=== PATIENT | male | born 1975 | race African-American/Black ===

== ENCOUNTER 2016-12-28 00:15 | Emergency (ER) | payer SELFPAY ==
[~2016-12-28] VITALS: Ht 188 cm; Wt 99.8 kg
[2016-12-28 03:56] VITALS: BP 126/85
== END 2016-12-28 04:12 ==
LOC: ER 00:16
DX: S51.012A Laceration without foreign body of left elbow, initial encounter (principal); R51 Headache; S00.93XA Contusion of unspecified part of head, initial encounter; F17.210 Nicotine dependence, cigarettes, uncomplicated; F12.10 Cannabis abuse, uncomplicated; X58.XXXA Exposure to other specified factors, initial encounter; Y93.89 Activity, other specified; Y99.8 Other external cause status; Y92.89 Other specified places as the place of occurrence of the external cause
CPT/HCPCS: 70450; 72125; 73070

== ENCOUNTER 2025-06-16 09:45 | Emergency (ER) | payer MEDICAID, OTHER ==
[~2025-06-16] VITALS: Ht 185.4 cm; Wt 105.0 kg
[2025-06-16 09:45] VITALS: BP 130/64; PULSE 118; RESP 18; TEMP 98.6; O2SAT 96
[2025-06-16 10:42] LABS: Hematocrit 41.5 % (41.0-53.0); Hemoglobin 14.0 g/dL (13.5-17.5); Mean Corpuscular Hemoglobin 30.1 pg (28.0-32.0); Mean Corpuscular Volume 89.1 fL (80.0-100.0); Nucleated Red Blood Cells % 0.1 %
[2025-06-16 10:50] LABS: Chloride 105 mmol/L (98-107); Potassium 3.9 mmol/L (3.5-5.1); Sodium 141 mmol/L (136-145)
[2025-06-16 10:51] LABS: Anion Gap 10 (5-15); Calcium 9.5 mg/dL (8.7-10.4); Carbon Dioxide 26 mmol/L (20-31)
[2025-06-16 10:56] LABS: BUN/Creatinine Ratio 12.3 (10.0-20.0); Blood Urea Nitrogen 14 mg/dL (9-23); Glucose 103 mg/dL (74-106)
[2025-06-16 10:57] LABS: Acetaminophen < 2.0 UG/ML (10.0-20.0); Salicylate < 3.0 mg/dL (-30)
[2025-06-16 11:17] LABS: Urine Protein, UAD 1+ (Negative)
[2025-06-16 11:28] LABS: Amphetamine Screen, Urine Pos (NEGATIVE); Barbiturate Scree,Urine Neg (NEGATIVE); Benzodiazephine Screen, Urine Neg (NEGATIVE); Cannabinoid Screen, Urine Pos (NEGATIVE); Cocaine Screen, Urine Neg (NEGATIVE)
[2025-06-16 11:29] LABS: Opiate Scree,Urine Neg (NEGATIVE); Phencyclidine Screen, Urine Neg (NEGATIVE)
--- NOTE | 2025-06-16 11:32 | ED.PDOC ---
Psychiatric HPI Comments 50 y/o M, with PMHx of polysubstance abuse is BIBA for CC of suicidal ideation. EMS reports, patient is coming from home where he called emergency medical services d/t cutting himself superficially on all fingertips in an attempt to hurt himself. Patient relays, that he cut himself because he was upset that his neighbors pointed a gun at him. Upon arrival to the ED, patient denies suicidal ideation stating "I wanted to hurt myself before anyone else could". Per EMS, patient was seen at [facility] for SS and was removed off of property d/t becoming aggressive with staff. Patient denies ETOH or tobacco usage, admits to using methamphetamines a couple of days ago. No other symptoms or modifying factors are present at this time. Chief Complaint: Suicidal Time Seen by MD: 10:45 Primary Care Provider: NONE Reviewed Notes: Nurses Notes, Passport Support Manager Notes, Medications, Allergies Information Source: Patient, Emergency Med Personnel Mode of Arrival: EMS Severity: Unable to Care for Self Severity of Pain: None Severity of Mental Status: Moderate Severity of Symptoms: Moderate Timing: Hours Duration: Since onset Prehospital treatment: None Presents with: Suicidal Ideation Attempt: Laceration Ingestion: None Circumstance: None Current substance abuse: None Stressors: Relationships History of: None Quality: None Location: Other (fingertips) Location of pain or injury: None Associated signs and symptoms: None Past Medical History PAST MEDICAL HISTORY: Denies Surgical History: Denies all surgeries Family History Family History: Unknown Social History Smoker: Cigarettes, Greater Than 1 Pack/Day Alcohol: Occasionally Drugs: Marijuana, Methamphetamine Lives In: Home Constitutional: denies: chills, diaphoresis, fatigue, fever, malaise, sweats, weakness, others EENTM: denies: blurred vision, double vision, ear bleeding, ear discharge, ear drainage, ear pain, ear ringing, eye pain, eye redness, hearing loss, mouth pain, mouth swelling, nasal discharge, nose bleeding, nose congestion, nose pain, photophobia, tearing, throat pain, throat swelling, voice changes, others Respiratory: denies: cough, hemoptysis, orthopnea, SOB at rest, shortness of breath, SOB with excertion, stridor, wheezing, others Cardiovascular: denies: chest pain, dizzy spells, diaphoresis, Dyspnea on exertion, edema, irregular heart beat, left arm pain, lightheadedness, palpitations, PND, syncope, others Gastrointestinal: denies: abdomen distended, abdominal pain, blood streaked bowels, constipated, diarrhea, dysphagia, difficulty swallowing, hematemesis, melena, nausea, poor appetite, poor fluid intake, rectal bleeding, rectal pain, vomiting, others Genitourinary: denies: burning, dysuria, flank pain, frequency, hematuria, incontinence, penile discharge, penile sore, pain, testicle pain, testicle swelling, urgency, others Neurological: denies: dizziness, fainting, headache, left sided numbness, left sided weakness, numbness, paresthesia, pre-existing deficit, right sided numbness, right sided weakness, seizure, speech problems, tingling, tremors, weakness, others Musculoskeletal: denies: back pain, gout, joint pain, joint swelling, muscle p ain, muscle stiffness, neck pain, others Integumetry: denies: bruises, change in color, change in hair/nails, dryness, laceration, lesions, lumps, rash, wounds, others Allergic/Immunocompromised: denies: Difficulty Healing, Frequent Infections, Hives, Itching, others Hematologic/Lymphatic: denies: anemia, blood clots, easy bleeding, easy bruising, swollen glands, others Endocrine: denies: excessive hunger, excessive sweating, excessive thirst, excessive urination, flushing, intolerance to cold, intolerance to heat, unexplained weight gain, unexplained weight loss, others Psychiatric: denies: anxiety, bipolar disorder, depression, hopeless, panic disorder, schizophrenia, sleepless, suicidal, others All Other Systems: Reviewed and Negative Physical Exam General Appearance: No Apparent Distress, Normal HEENT: Normal ENT Inspection, Pharynx Normal Neck: Full Range of Motion, Non-Tender, Normal, Normal Inspection Respiratory: Chest Non-Tender, Lungs Clear, No Accessory Muscle Use, No Respiratory Distress, Normal Breath Sounds Cardiovascular: No Edema, No Murmur, No Gallop, Normal Peripheral Pulses, Regular Rate/Rhythm Breast Exam: Deferred Gastrointestinal: No Organomegaly, Non Tender, No Pulsatile Mass, Normal Bowel Sounds, Soft Genitalia: Deferred Pelvic: Deferred Rectal: Deferred Extremities: No calf tenderness, Normal capillary refill, Normal inspection, Normal range of motion, Non-tender, No pedal edema Musculoskeletal : Apperance: Normal Neurologic: Alert, therapist physical II-XII nml as Tested, No Motor Deficits, Normal Affect, Normal Mood, No Sensory Deficits Cerebellar Function: Normal Reflexes: Normal Skin: Dry, Normal Color, Warm Lymphatic: No Adenopathy Was a procedure done? Was a procedure done?: No Psych Differential Dx Suicidal Differential Dx: Schizoprenia, Substance Abuse X-Ray, Labs, Meds, VS Vital Signs Date Time Temp Pulse Resp B/P (MAP) Pulse Ox O2 Delivery O2 Flow Rate FiO2 06/16/25 09:45 98.6 118 18 130/64 96 98.6 Lab Test 06/16/25 10:15 06/16/25 10:06 Range/Units White Blood Count 8.0 4.4-10.8 10^3/uL Red Blood Count 4.66 4.5-5.90 10^6/uL Hemoglobin 14.0 13.5-17.5 g/dL Hematocrit 41.5 41.0-53.0 % Mean Corpuscular Volume 89.1 80.0-100.0 fL Mean Corpuscular Hemoglobin 30.1 28.0-32.0 pg Mean Corpuscular Hemoglobin Concent 33.8 32.0-36.0 g/dL Red Cell Distribution Width 14.4 H 11.8-14.3 % Platelet Count 312 140-450 10^3/uL Mean Platelet Volume 7.6 6.9-10.8 fL Neutrophils (%) (Auto) 54.3 37.0-80.0 % Lymphocytes (%) (Auto) 35.0 10.0-50.0 % Monocytes (%) (Auto) 9.1 0.0-12.0 % Eosinophils (%) (Auto) 0.9 0.0-7.0 % Basophils (%) (Auto) 0.7 0.0-2.0 % Neutrophils # (Auto) 4.3 1.6-8.6 10 ^3/uL Lymphocytes # (Auto) 2.8 0.4-5.4 10 ^3/uL Monocytes # (Auto) 0.7 0-1.3 10 ^3/uL Eosinophils # (Auto) 0.1 0-0.8 10 ^3/uL Basophils # (Auto) 0.1 0-0.2 10 ^3/uL Nucleated Red Blood Cells 0.1 % Sodium Level 141 136-145 mmol/L Potassium Level 3.9 3.5-5.1 mmol/L Chloride Level 105 98-107 mmol/L Carbon Dioxide Level 26 20-31 mmol/L Anion Gap 10 5-15 Blood Urea Nitrogen 14 9-23 mg/dL Creatinine 1.14 0.700-1.30 mg/dL Glomerular Filtration Rate Calc 79 >90 mL/min BUN/Creatinine Ratio 12.3 10.0-20.0 Serum Glucose 103 74-106 mg/dL Calcium Level 9.5 8.7-10.4 mg/dL Salicylates Level < 3.0 -30 mg/dL Acetaminophen Level < 2.0 L 10.0-20.0 UG/ML Plasma/Serum Blood Alcohol < 3.0 <10 mg/dL Urine Color Yellow Yellow Urine Clarity Clear Clear Urine pH 5.5 5.0-9.0 Urine Specific [place] 1.035 1.001-1.035 Urine Protein 1+ H Negative Urine Ketones Negative Negative Urine Blood Negative Negative /uL Urine Nitrite Negative Negative Urine Bilirubin Negative Negative Urine Urobilinogen Normal Negative mg/dL Urine Leukocyte Esterase Negative Negative /uL Urine RBC 3 0 - 3 /hpf Urine Microscopic WBC 4 H 0-3 /HPF Urine Squamous Epithelial Cells None seen <5 /hpf Urine Bacteria Few H None Seen /hpf Urine Mucus Few None Seen Urine Sperm Present None Seen /hpf Urine Glucose Normal Normal mg/dL Urine Opiates Screen Neg NEGATIVE Urine Fentanyl Screen Neg NEGATIVE Urine Barbiturates Screen Neg NEGATIVE Urine Phencyclidine Screen Neg NEGATIVE Urine Amphetamines Screen Pos NEGATIVE Urine Benzodiazepines Screen Neg NEGATIVE Urine Cocaine Screen Neg NEGATIVE Urine Cannabinoids Screen Pos NEGATIVE Time of 1ST Reevaluation: 11:15 Reevaluation 1ST: Unchanged Patient Education/Counseling: Diagnosis, Treatment Family Education/Counseling: No Family Present Departure 1 Departure Time of Disposition: 17:50 (Patient is medically cleared and cleared by Juan Daniel abraham. We will discharge patient home with outpatient follow up) Impression: Primary Impression: Polysubstance abuse Disposition: 01 HOME / SELF CARE / HOMELESS Condition: Stable Additional Instructions: Do not use drugs. There are resources to help you quit. You can call: [phone] ([phone]) If your symptoms worsen or you have any other concerns please return to the emergency room. e-Prescriptions No Active Prescriptions or Reported Meds Discharged With: Self Critical Care Note Critical Care Time?: No Stability Stability form required: No Heart Score Heart Score: Heart Score Response (Comments) Value History N/A 0 EKG N/A 0 Age N/A 0 Risk Factors N/A 0 Troponin N/A 0 Total 0 I personally scribed for HANH CALLAHAN MD ([email or web address]) on 06/16/25 at 11:32. Electronically submitted by Winifred Brock ([email or web address]). HANH CALLAHAN MD Jun 16, 2025 11:32
--- NOTE | 2025-06-16 16:40 | DVHINCON2 ---
Date of Service if different f: Jun 16, 2025 Consultation ([place]) Labs Laboratory Tests Test 06/16/25 10:06 06/16/25 10:15 Urine Color Yellow (Yellow) Urine Clarity Clear (Clear) Urine pH 5.5 (5.0-9.0) Urine Specific [place] 1.035 (1.001-1.035) Urine Protein 1+ (Negative) Urine Ketones Negative (Negative) Urine Blood Negative /uL (Negative) Urine Nitrite Negative (Negative) Urine Bilirubin Negative (Negative) Urine Urobilinogen Normal mg/dL (Negative) Urine Leukocyte Esterase Negative /uL (Negative) Urine RBC 3 /hpf (0 - 3) Urine Microscopic WBC 4 /HPF (0-3) Urine Squamous Epithelial Cells None seen /hpf (<5) Urine Bacteria Few /hpf (None Seen) Urine Mucus Few (None Seen) Urine Sperm Present /hpf (None Seen) Urine Glucose Normal mg/dL (Normal) Urine Opiates Screen Neg (NEGATIVE) Urine Fentanyl Screen Neg (NEGATIVE) Urine Barbiturates Screen Neg (NEGATIVE) Urine Phencyclidine Screen Neg (NEGATIVE) Urine Amphetamines Screen Pos (NEGATIVE) Urine Benzodiazepines Screen Neg (NEGATIVE) Urine Cocaine Screen Neg (NEGATIVE) Urine Cannabinoids Screen Pos (NEGATIVE) White Blood Count 8.0 10^3/uL (4.4-10.8) Red Blood Count 4.66 10^6/uL (4.5-5.90) Hemoglobin 14.0 g/dL (13.5-17.5) Hematocrit 41.5 % (41.0-53.0) Mean Corpuscular Volume 89.1 fL (80.0-100.0) Mean Corpuscular Hemoglobin 30.1 pg (28.0-32.0) Mean Corpuscular Hemoglobin Concent 33.8 g/dL (32.0-36.0) Red Cell Distribution Width 14.4 % (11.8-14.3) Platelet Count 312 10^3/uL (140-450) Mean Platelet Volume 7.6 fL (6.9-10.8) Neutrophils (%) (Auto) 54.3 % (37.0-80.0) Lymphocytes (%) (Auto) 35.0 % (10.0-50.0) Monocytes (%) (Auto) 9.1 % (0.0-12.0) Eosinophils (%) (Auto) 0.9 % (0.0-7.0) Basophils (%) (Auto) 0.7 % (0.0-2.0) Neutrophils # (Auto) 4.3 10 ^3/uL (1.6-8.6) Lymphocytes # (Auto) 2.8 10 ^3/uL (0.4-5.4) Monocytes # (Auto) 0.7 10 ^3/uL (0-1.3) Eosinophils # (Auto) 0.1 10 ^3/uL (0-0.8) Basophils # (Auto) 0.1 10 ^3/uL (0-0.2) Nucleated Red Blood Cells 0.1 % Sodium Level 141 mmol/L (136-145) Potassium Level 3.9 mmol/L (3.5-5.1) Chloride Level 105 mmol/L (98-107) Carbon Dioxide Level 26 mmol/L (20-31) Anion Gap 10 (5-15) Blood Urea Nitrogen 14 mg/dL (9-23) Creatinine 1.14 mg/dL (0.700-1.30) Glomerular Filtration Rate Calc 79 mL/min (>90) BUN/Creatinine Ratio 12.3 (10.0-20.0) Serum Glucose 103 mg/dL (74-106) Calcium Level 9.5 mg/dL (8.7-10.4) Salicylates Level < 3.0 mg/dL (-30) Acetaminophen Level < 2.0 UG/ML (10.0-20.0) Plasma/Serum Blood Alcohol < 3.0 mg/dL (<10) Appetite: Good Appearance: Stated age, Clean Psychomotor activity: WNL Behavioral: Cooperative Eye contact: Appropriate Speech: WNL Affect: Appropriate Mood: Neutral Thought content: WNL Suicidal ideations: Absent Homicidal ideations: Absent Orientation: Person, Place, Time, Situation Memory intact: Recent Intellect: Average Abstractability: WNL Concentration: Adequate Judgement: Marginal Insight: Limited Vitals Vital Signs Date Time Temp Pulse Resp B/P (MAP) Pulse Ox O2 Delivery O2 Flow Rate FiO2 06/16/25 09:45 98.6 118 18 130/64 96 98.6 Medication adjusted: No Labs ordered: No Diagnosis: unspecified psychosis r/o substance-induced Methamphetamine dependence Cannabis dependence Plan : Patient presently denies suicidal/homicidal ideation Patient had recent substance intoxication patient may discharge home to follow up with outpatient mental health team. History of Present Illness Reason for Consult : patient presents by ambulance after cutting himself HPI : This is a 50-year-old male with hx of psychosis and polysubstance use presented here after calling 911. Patient is evaluated via telepsychiatry. He reports being upset at neighbors and he went to do "something stupid" and used methamphetamine. He reports that neighbors were pointing a gun him at the time but does not believe this now. He also has some superficial lacerations to finger tips. He says he cut himself but it was stupid. He wanted to harm himself before neighbors could. Now he does not believe they will harm him. This appears to be after he used substances. He denies any suicidal/homicidal ideation. He also denies auditory/visual halluci nations or paranoia now. He would like to go home. He reports cousin on the way to pick him up. He also reports mental health team has set up rehab for him and plans to check in soon. He reports sleep and appetite are intact. He denies feeling depressed. Offered vol inpatient transfer and he declined. Past Psychiatric History : He denies past inpatient psych admissions. he reports going to [facility] emergency room 1 week ago for similar incident. He denies past suicide attempts. He reports connection to [facility], has a therapist and psychiatrist. he is currently prescribed Latuda and Cymbalta, reports compliance. Past Medical History : he denies Social History : He reports has own apartment, lives alone. Unclear if this is government housing as he denies employment. He denies any known family history. He reports use of meth and marijuana for "some time" he denies daily use. He denies other substance or IVD. STEFANY VERMA DNP Jun 16, 2025 16:40
== END 2025-06-16 18:31 | disposition home or self-care (01) ==
LOC: EDBD 09:45 → ER 09:45
DX: S61.219A Laceration without foreign body of unspecified finger without damage to nail, initial encounter (principal); F12.20 Cannabis dependence, uncomplicated; F15.20 Other stimulant dependence, uncomplicated; F29 Unspecified psychosis not due to a substance or known physiological condition; F17.210 Nicotine dependence, cigarettes, uncomplicated; F10.90 Alcohol use, unspecified, uncomplicated; X78.9XXA Intentional self-harm by unspecified sharp object, initial encounter; Y93.89 Activity, other specified; Y92.89 Other specified places as the place of occurrence of the external cause; Y99.8 Other external cause status
CPT/HCPCS: 36415; 80048; 80307; 80320; 80329; 81001; 85025

== ENCOUNTER 2025-06-24 09:53 | Emergency (ER) | payer MEDICAID ==
[~2025-06-24] VITALS: Ht 185.4 cm; Wt 100.0 kg
--- NOTE | 2025-06-24 10:04 | ECG ---
[facility] Test Date: 2025-06-24 Test Time: 09:55:42 Pat Name: JOSE ANTONIO PADILLA Department: [facility] ED Patient ID: [facility]-[id number] Room: Gender: M [employer]am [employer]: BAN : 1975 Requested By: EMERGENCY EMERGENCY Order Number: [id number] Reading MD: Neri Pena Measurements Intervals Helix Rate: 107 P: 51 NJ: 160 QRS: 98 QRSD: 99 T: -22 QT: 340 QTc: 454 Interpretive Statements Sinus tachycardia Borderline right axis deviation Nonspecific T abnormalities, inferior leads Electronically Signed On 06-24-2025 12:19:16 PDT by Neri Pena Please click the below link to view image of tracing.
[2025-06-24 10:05] VITALS: BP 122/83; RESP 18; TEMP 98.1; O2SAT 98
[2025-06-24 10:21] VITALS: PULSE 107
--- NOTE | 2025-06-24 10:21 | ED.PDOC ---
Psychiatric HPI Comments HPI: Ricardo 50 y.o male presents to the ED via EMS for an initial complaint per EMS of SOB but upon presentation, reports suicidal and homicidal ideation. Patient is a poor historian. EMS reports patient asked employees inside a [employer] store to call 911 today. Upon ED arrival, patient is requesting to only speak with physi sophia in a private area and only then will he give a more detailed explanation. Patient does mention HI with plan of "bombing the whole street" in which he was picked up from by EMS. No other information obtained. Patient was seen on 06/16/25 at this ED for SI, was seen by tele psychiatrist who offered to place him on a volunteer inpatient transfer, however declined plan of care. Per psychiatrist consult note, patient has hx of polysubstance use, psychosis and has established care with [facility] where he has a therapist and psychiatrist. he is currently prescribed Latuda and Cymbalta, reports compliance. Initial Vitals BP: 122/83 HR: 107 RR: 18 O2: 98% RA Temp: 98.1 F Past Medical History: Bipolar, depression, and SI. Past Surgical History: Unknown Social History: Denies ETOH, smoking, and drug use. Medications: Latuda and Cymbalta Allergies: Denies padilla: SI/HI bipolar depression HPI: Poor Historian. REVIEW OF SYSTEMS: CONSTITUTIONAL: Denies acute: fever, diaphoresis, chills, generalized weakness. HEAD: Denies acute: headache, photophobia Eyes: Denies acute: Double vision, vision loss, eye pain, eye discharge. EARS: Denies acute: tinnitus, hearing loss, ear discharge, ear pain, THROAT: Denies acute: sore throat, swelling, difficulty swallowing , pain with swallowing, change in voice. NECK: Denies acute: neck pain, neck swelling, stiff neck. HEART: Denies acute : chest pain, palpitations, LUNGS: Denies acute: wheezing, cough, hemoptysis ABDOMEN: Denies acute: abdominal pain, Nausea, Vomiting, diarrhea, melena , hematemesis, hematochezia SKIN: Denies acute: rash, redness, lesions, itchiness. EXTREMITIES: Denies acute: calf pain, numbness, tingling, weakness, denies pain in extremity. Denies acute: Low back pain. Neuro: Denies acute: focal neurological deficit, motor or sensory focal neurological deficit, tremors, seizure like activity, confusion, dizziness, change in mental status, loss of bowel or bladder function, cauda equina like symptoms. : Denies acute: dysuria, hematuria, flank pain, increase in urinary frequency. PSYCH: Denies acute: hallucination, PHYSICAL EXAM: General: -----no---acute distress, awake and alert. Head: normocephalic, atraumatic. Neck: supple, trachea is midline, no swelling. Throat: Normal phonation. Eyes:, no erythema, no purulent discharge, no proptosis, no icterus. Heart: regular rate, regular rhythm, no significant murmur appreciated. Lungs: no apparent respiratory distress, Able to speak in full sentences. No wheezing, no rhonchi, no crackles. No stridors Clear to auscultation bilaterally. Abdomen: non tender to palpation, non distended, soft, no guarding, no rebound, + bowel sounds. Neuro: Awake, Alert, oriented to name, self, situation, follows commands GCS=15. Speech is normal. Skin: no petechia, no purpura, no cyanosis, non-pale, not jaundice. Lower extremities: --1/4 b/l - Pitting edema no deformity, no focal swelling, no calf TTP. moves all four extremities. Face: no apparent facial droop. Ambulating in the ED independently. ED COURSE: DISCLAIMER: This medical document was created using an electronic medical record system with voice recognition software and computerized dictation system. Although this document has been carefully reviewed, there might still be some phonetic and typographical errors. Occasional wrong-word or "sound-alike" substitutions may have occurred due to the inherent limitations of voice recognition software. These areas are purely typographical due to imperfections of the software programs and do not reflect any compromise in the patient's medical care. Please read the chart carefully and recognize, using context, where these substitutions have occurred. Chief Complaint: Shortness of Breath Time Seen by MD: 10:01 Primary Care Provider: NONE Reviewed Notes: Stress Analyst Notes Information Source: Patient, Emergency Med Personnel Mode of Arrival: EMS EKG EKG : Pulse Rate (adult): 107 Cardiac Rhythm: ST Comments T wave inversion in lead 3 Was a procedure done? Was a procedure done?: No Psych Differential Dx Psych. Differential Dx: Suicidal Suicidal Differential Dx: Alcohol Abuse, Anxiety, Bipolar Disorder, Conversion Disorder, Depression, Homicidal, Laceration, Panic Disorder, Personality Disorder, Schizoprenia, Substance Abuse Other Differentail Dx As far as possible dyspnea. DDx include ACS, unstable angina, anxiety, PE, p neumothroax, neoplasm, cardiac ischemia, COPD, asthma, CHF, pleural effusion, tobacco abuse, pneumonia, hypoxia, hypercapnia, anemia., infection/sepsis., pulmonary edema. Asthma, Cardiac tamponade, infection. X-Ray, Labs, Meds, VS Vital Signs Date Time Temp Pulse Resp B/P (MAP) Pulse Ox O2 Delivery O2 Flow Rate FiO2 06/24/25 10:21 107 06/24/25 10:05 98.1 10 18 122/83 98 98.1 06/24/25 09:55 107 Lab Test 06/24/25 10:30 Range/Units White Blood Count 6.9 4.4-10.8 10^3/uL Red Blood Count 4.60 4.5-5.90 10^6/uL Hemoglobin 13.9 13.5-17.5 g/dL Hematocrit 41.5 41.0-53.0 % Mean Corpuscular Volume 90.3 80.0-100.0 fL Mean Corpuscular Hemoglobin 30.3 28.0-32.0 pg Mean Corpuscular Hemoglobin Concent 33.6 32.0-36.0 g/dL Red Cell Distribution Width 14.4 H 11.8-14.3 % Platelet Count 314 140-450 10^3/uL Mean Platelet Volume 7.4 6.9-10.8 fL Neutrophils (%) (Auto) 64.1 37.0-80.0 % Lymphocytes (%) (Auto) 27.7 10.0-50.0 % Monocytes (%) (Auto) 5.9 0.0-12.0 % Eosinophils (%) (Auto) 1.5 0.0-7.0 % Basophils (%) (Auto) 0.8 0.0-2.0 % Neutrophils # (Auto) 4.4 1.6-8.6 10 ^3/uL Lymphocytes # (Auto) 1.9 0.4-5.4 10 ^3/uL Monocytes # (Auto) 0.4 0-1.3 10 ^3/uL Eosinophils # (Auto) 0.1 0-0.8 10 ^3/uL Basophils # (Auto) 0.1 0-0.2 10 ^3/uL Nucleated Red Blood Cells 0.1 % Sodium Level 144 136-145 mmol/L Potassium Level 3.8 3.5-5.1 mmol/L Chloride Level 107 98-107 mmol/L Carbon Dioxide Level 27 20-31 mmol/L Anion Gap 10 5-15 Blood Urea Nitrogen 7 L 9-23 mg/dL Creatinine 1.13 0.700-1.30 mg/dL Glomerular Filtration Rate Calc 80 >90 mL/min BUN/Creatinine Ratio 6.2 L 10.0-20.0 Serum Glucose 100 74-106 mg/dL Lactic Acid Level 1.9 0.4-2.0 mmol/L Calcium Level 9.4 8.7-10.4 mg/dL Total Bilirubin 0.4 0.2-1.0 mg/dL Aspartate Amino Transferase (AST) 28 13-40 U/L Alanine Aminotransferase (ALT) 33 7-40 U/L Alkaline Phosphatase 74 46-116 U/L Troponin I High Sensitivity 6 </=54 ng/L B-Type Natriuretic Peptide 2.68 0-100 pg/mL Total Protein 7.5 5.7-8.2 g/dL Albumin 4.5 3.2-4.8 g/dL [place] [id number] Ph: [phone] DIAGNOSTIC IMAGING Diagnostic Imaging Report : [id number] Signed PATIENT: JOSE ANTONIO PADILLA ACCT: [id number] UNIT: [id number] : 1975 LOC: ER ROOM / BED: / AGE / SEX: 50 / M ADM STATUS: REG ER SERVICE 1010 ORDERING PHYSICIAN: HEIDE MA DO PROCEDURE(s): CXRP - CHEST PORTABLE REASON: SI/HI ORDER NUMBER(s): [id number], ACCESSION NUMBER(s): [id number] CHEST RADIOGRAPH Indication: SI/HI Technique: Single frontal view of the chest was obtained Comparison: None FINDINGS: Lines and Tubes: None Lungs: No focal consolidation. Pleura: No effusion. No pneumothorax. Cardiomediastinal contours: Unremarkable Bones: No acute osseous abnormality. IMPRESSION: 1. No acute cardiopulmonary disease. HS:Y ATED BY: PATRICIA BURNS Jr., DO DICTATED DATE/TIME: 06/24/25 105 SIGNED BY: PATRICIA BURNS Jr., SIGNED DATE/TIME: 06/24/25 105 CC: Time of 1ST Reevaluation: 11:00 Reevaluation 1ST: Unchanged Patient Education/Counseling: Diagnosis, Treatment Family Education/Counseling: No Family Present Comments Labs were ordered along with social service and tele psych consultation. Jacquelyn ent eloped I was not to be found in the ED. Departure 1 Departure Time of Disposition: 00:00 Impression: Primary Impression: Suicidal ideation Additional Impressions: Homicidal ideation Encounter for psychiatric assessment Tachycardia Eloped from emergency department Homelessness Disposition: LEFT AWOL/ELOPED Condition: Other Additional Instructions: Patient eloped e-Prescriptions No Active Prescriptions or Reported Meds Critical Care Note Critical Care Time?: No I personally scribed for HEIDE MA DO ([email or web address]) on 06/24/25 at 10:21. Electronically submitted by Alyssa Nguyen ([facility]). I personally scribed for HEIDE MA DO ([email or web address]) on 06/24/25 at 13:37. Electronically submitted by Alyssa Nguyen ([facility]). HEIDE MA DO Jun 24, 2025 10:21
[2025-06-24 10:46] LABS: Hematocrit 41.5 % (41.0-53.0); Hemoglobin 13.9 g/dL (13.5-17.5); Mean Corpuscular Hemoglobin 30.3 pg (28.0-32.0); Mean Corpuscular Volume 90.3 fL (80.0-100.0); Nucleated Red Blood Cells % 0.1 %
--- NOTE | 2025-06-24 10:57 | DVH ---
CHEST RADIOGRAPH Indication: SI/HI Technique: Single frontal view of the chest was obtained Comparison: None FINDINGS: Lines and Tubes: None Lungs: No focal consolidation. Pleura: No effusion. No pneumothorax. Cardiomediastinal contours: Unremarkable Bones: No acute osseous abnormality. IMPRESSION: 1. No acute cardiopulmonary disease. HS:Y
[2025-06-24 10:59] LABS: Alanine Aminotransferase 33 U/L (7-40); Alkaline Phosphatase 74 U/L (46-116); Anion Gap 10 (5-15); BUN/Creatinine Ratio 6.2 (10.0-20.0); Calcium 9.4 mg/dL (8.7-10.4); Carbon Dioxide 27 mmol/L (20-31); Chloride 107 mmol/L (98-107); Glucose 100 mg/dL (74-106); Potassium 3.8 mmol/L (3.5-5.1); Sodium 144 mmol/L (136-145); Total Protein 7.5 g/dL (5.7-8.2)
[2025-06-24 11:00] LABS: Albumin 4.5 g/dL (3.2-4.8); Bilirubin, Total 0.4 mg/dL (0.2-1.0)
[2025-06-24 11:01] LABS: Blood Urea Nitrogen 7 mg/dL (9-23)
== END 2025-06-24 13:43 | disposition left against medical advice (07) ==
LOC: EDBD 09:53 → ER 09:53
DX: R45.851 Suicidal ideations (principal); R45.850 Homicidal ideations; R00.0 Tachycardia, unspecified; F31.9 Bipolar disorder, unspecified; J45.909 Unspecified asthma, uncomplicated; Z59.00 Homelessness unspecified
CPT/HCPCS: 36415; 71045; 80053; 83605; 83880; 84484; 85025; 93005

== ENCOUNTER 2025-07-02 01:54 | Inpatient (IN) | payer MEDICAID ==
[~2025-07-02] VITALS: Ht 188 cm; Wt 113.2 kg
[2025-07-02 01:57] VITALS: BP 132/76; RESP 20; TEMP 97.4; O2SAT 97
[2025-07-02 02:08] VITALS: PULSE 85
--- NOTE | 2025-07-02 02:14 | ECG ---
[facility] Test Date: 2025-07-02 Test Time: 02:08:37 Pat Name: JOSE ANTONIO PADILLA Department: ED Room: [address] [place] [address] Gender: M [employer] R Tech: AM : 1975 Requested By: HANH CALLAHAN Order Number: [id number] Reading MD: Neri Pena Measurements Intervals [place] Rate: 85 P: 48 PA: 153 QRS: 53 QRSD: 102 T: -30 QT: 367 QTc: 437 Interpretive Statements Sinus rhythm Inferior infarct, old Baseline wander in lead(s) I Electronically Signed On 07-02-2025 20:40:54 PDT by Neri Pena Please click the below link to view image of tracing.
--- NOTE | 2025-07-02 02:25 | ED.PDOC ---
History of Present Illness HPI Comments 50-year-old male who came to ER for shortness a breath. Patient is homeless and has history of polysubstance abuse. Has been complaining of left lateral chest wall pain and shortness a breath for the past few hours. Saturating 97% on room air. Chief Complaint: Shortness of Breath Time Seen by MD: 02:24 Primary Care Provider: NONE Reviewed Notes: Nurses Notes Allergies: Coded Allergies: NO KNOWN ALLERGIES (Unverified , 01/07/11) Home Meds No Active Prescriptions or Reported Meds Information Source: Patient Mode of Arrival: Ambulatory Severity: Moderate Timing: Hours Duration: Intermittent Past Medical History PAST MEDICAL HISTORY: Denies Surgical History: Denies all surgeries Family History Family History: Reviewed,noncontributory to illness Social History Smoker: Cigarettes, Greater Than 1 Pack/Day Alcohol: Occasionally Drugs: Marijuana, Methamphetamine Lives In: Homeless Constitutional: denies: chills, diaphoresis, fatigue, fever, malaise, sweats, weakness, others EENTM: denies: blurred vision, double vision, ear bleeding, ear discharge, ear drainage, ear pain, ear ringing, eye pain, eye redness, hearing loss, mouth pain, mouth swelling, nasal discharge, nose bleeding, nose congestion, nose pain, photophobia, tearing, throat pain, throat swelling, voice changes, others Respiratory: reports: shortness of breath; denies: cough, hemoptysis, orthopnea, SOB at rest, SOB with excertion, stridor, wheezing, others Cardiovascular: reports: chest pain; denies: dizzy spells, diaphoresis, Dyspnea on exertion, edema, irregular heart beat, left arm pain, lightheadedness, palpitations, PND, syncope, others Gastrointestinal: denies: abdomen distended, abdominal pain, blood streaked bowels, constipated, diarrhea, dysphagia, difficulty swallowing, hematemesis, melena, nausea, poor appetite, poor fluid intake, rectal bleeding, rectal pain, vomiting, others Genitourinary: denies: burning, dysuria, flank pain, frequency, hematuria, incontinence, penile discharge, penile sore, pain, testicle pain, testicle swelling, urgency, others Neurological: denies: dizziness, fainting, headache, left sided numbness, left sided weakness, numbness, paresthesia, pre-existing deficit, right sided numbness, right sided weakness, seizure, speech problems, tingling, tremors, weakness, others Musculoskeletal: denies: back pain, gout, joint pain, joint swelling, muscle pain, muscle stiffness, neck pain, others Integumetry: denies: bruises, change in color, change in hair/nails, dryness, laceration, lesions, lumps, rash, wounds, others Allergic/Immunocompromised: denies: Difficulty Healing, Frequent Infections, Hives, Itching, others Hematologic/Lymphatic: denies: anemia, blood clots, easy bleeding, easy bruising, swollen glands, others Endocrine: denies: excessive hunger, excessive sweating, excessive thirst, excessive urination, flushing, intolerance to cold, intolerance to heat, unexplained weight gain, unexplained weight loss, others Psychiatric: denies: anxiety, bipolar disorder, depression, hopeless, panic disorder, schizophrenia, sleepless, suicidal, others Physical Exam General Appearance: No Apparent Distress, Normal HEENT: Normal ENT Inspection, Pharynx Normal, TMs Normal Neck: Full Range of Motion, Non-Tender, Normal, Normal Inspection Respiratory: Chest Non-Tender, Lungs Clear, No Accessory Muscle Use, No Respiratory Distress, Normal Breath Sounds Cardiovascular: No Edema, No JVD, No Murmur, No Gallop, Normal Peripheral Pulses, Regular Rate/Rhythm Breast Exam: Deferred Gastrointestinal: No Organomegaly, Non Tender, No Pulsatile Mass, Normal Bowel Sounds, Soft Genitalia: Deferred Pelvic: Deferred Rectal: Deferred Extremities: No calf tenderness, Normal capillary refill, Normal inspection, Normal range of motion, Non-tender, No pedal edema Musculoskeletal : Apperance: Normal Neurologic: Alert, waxer tender II-XII nml as Tested, No Motor Deficits, Normal Affect, Normal Mood, No Sensory Deficits Cerebellar Function: Normal Reflexes: Normal Skin: Dry, Normal Color, Warm Lymphatic: No Adenopathy Was a procedure done? Was a procedure done?: No Differential Dx Considerations may include: Anemia, electrolyte imbalance, coronary artery disease, upper respiratory infection, polysubstance abuse, X-Ray, Labs, Meds, VS Vital Signs Date Time Temp Pulse Resp B/P (MAP) Pulse Ox O2 Delivery O2 Flow Rate FiO2 07/02/25 02:08 85 07/02/25 01:57 97.4 87 20 132/76 97 97.4 Lab Test 07/02/25 03:17 07/02/25 02:21 Range/Units Troponin I High Sensitivity < 3 L 3 L </=54 ng/L White Blood Count 7.2 4.4-10.8 10^3/uL Red Blood Count 4.60 4.5-5.90 10^6/uL Hemoglobin 14.2 13.5-17.5 g/dL Hematocrit 41.6 41.0-53.0 % Mean Corpuscular Volume 90.5 80.0-100.0 fL Mean Corpuscular Hemoglobin 30.8 28.0-32.0 pg Mean Corpuscular Hemoglobin Concent 34.1 32.0-36.0 g/dL Red Cell Distribution Width 14.2 11.8-14.3 % Platelet Count 321 140-450 10^3/uL Mean Platelet Volume 7.4 6.9-10.8 fL Neutrophils (%) (Auto) 45.1 37.0-80.0 % Lymphocytes (%) (Auto) 44.6 10.0-50.0 % Monocytes (%) (Auto) 8.6 0.0-12.0 % Eosinophils (%) (Auto) 1.1 0.0-7.0 % Basophils (%) (Auto) 0.6 0.0-2.0 % Neutrophils # (Auto) 3.2 1.6-8.6 10 ^3/uL Lymphocytes # (Auto) 3.2 0.4-5.4 10 ^3/uL Monocytes # (Auto) 0.6 0-1.3 10 ^3/uL Eosinophils # (Auto) 0.1 0-0.8 10 ^3/uL Basophils # (Auto) 0 0-0.2 10 ^3/uL Nucleated Red Blood Cells 0.0 % Sodium Level 140 136-145 mmol/L Potassium Level 4.0 3.5-5.1 mmol/L Chloride Level 104 98-107 mmol/L Carbon Dioxide Level 28 20-31 mmol/L Anion Gap 8 5-15 Blood Urea Nitrogen 10 9-23 mg/dL Creatinine 1.17 0.700-1.30 mg/dL Glomerular Filtration Rate Calc 76 >90 mL/min BUN/Creatinine Ratio 8.5 L 10.0-20.0 Serum Glucose 98 74-106 mg/dL Calcium Level 9.5 8.7-10.4 mg/dL CHEST RADIOGRAPH Indication: cp Technique: Single frontal view of the chest was obtained COMPARISON: XY CHEST PORTABLE on DOS: 06/24/25 FINDINGS: Lines and Tubes: None Lungs: Clear Pleura: No effusion. No pneumothorax. Cardiomediastinal contours: Unremarkable Bones: Unremarkable IMPRESSION: 1. No acute disease. Time of 1ST Reevaluation: 02:20 Reevaluation 1ST: Unchanged Patient Education/Counseling: Diagnosis, Treatment Family Education/Counseling: No Family Present SEPSIS Sepsis Screen Date sepsis recognized/suspect: Jul 02, 2025 Time Sepsis recognized/suspect: 200 Recent Procedure: No On Antibiotic Therapy: Yes (DOXYCYCLINE ) Respiratory Rate >20: No Heart Rate >90: No Temp<36 C (96.8 F) or >38.3 C: No SBP <90 or MAP <65 mmHG: No New Acute Mental Status Change: No Is the patient on CPAP, BIPAP,: No Physician Orders Chest Portable (07/02/25 02:18) Troponin-I Hs (07/02/25 05:18) Vital Signs Date Time Temp Pulse Resp B/P (MAP) Pulse Ox O2 Delivery O2 Flow Rate FiO2 07/02/25 02:08 85 07/02/25 01:57 97.4 87 20 132/76 97 97.4 Laboratory Tests Test 07/02/25 02:21 White Blood Count 7.2 10^3/uL (4.4-10.8) Departure 1 Departure Time of Disposition: 05:03 (Patient presented with chest pain that was concerning for possible STEMI, ACS, PE, Pneumonia, Muscle Strain, COPD, Dissection. Data: 1. I ordered and reviewed the result of at least 3 labs including a CBC, BMP, and Troponin. 2. I independently interpreted the following tests: EKG which shows sinus arrhythmia and Chest X-ray which shows benign chest.Risk:This patient has a high risk of morbidity due to further diagnostic testing or treatment and may suffer from an acute cardiac or respiratory disorder. Workup reveals concern for ACS and patient should be admitted for further workup and possible expert consultation. ) Impression: Primary Impression: Acute chest pain Disposition: ADMITTED INPATIENT Admit to: Med Surg Condition: Guarded e-Prescriptions No Active Prescriptions or Reported Meds Critical Care Note Critical Care Time?: Yes Critical care comment: Acute chest pain Authorized and Performed by: Hanh Parekh MD Total critical care time: Approximately 38 minutes Due to a high probability of clinically significant, life threatening deterioration, the patient required my highest level of preparedness to intervene emergently and I personally spent this critical care time directly and personally managing the patient. This critical care time included obtaining a history; examining the patient; pulse oximetry; ordering and review of studies; arranging urgent treatment with development of a management plan; evaluation of patient's response to treatment; frequent reassessment; and, discussions with other providers. This critical care time was performed to assess and manage the high probability of imminent, life-threatening deterioration that could result in multi-organ failure. It was exclusive of separately billable procedures and treating other patients and teaching time. Please see my other sections and the rest of the note for further information on patient assessment and treatment. Stability Stability form required: No Heart Score Heart Score: Heart Score Response (Comments) Value History N/A 0 EKG N/A 0 Age N/A 0 Risk Factors N/A 0 Troponin N/A 0 Total 0 I personally scribed for HANH PAREKH MD ([facility]) on 07/02/25 at 02:25. Electronically submitted by Noe Rhoades ([facility] I personally scribed for HANH PAREKH MD ([facility]) on 07/02/25 at 03:29. Electronically submitted by Noe Rhoades ([facility] I personally scribed for HANH PAREKH MD ([facility]) on 07/02/25 at 04:21. Electronically submitted by Noe Rhoades ([facility] HANH PAREKH MD Jul 02, 2025 02:25
[2025-07-02 02:41] LABS: Hematocrit 41.6 % (41.0-53.0); Hemoglobin 14.2 g/dL (13.5-17.5); Mean Corpuscular Hemoglobin 30.8 pg (28.0-32.0); Mean Corpuscular Volume 90.5 fL (80.0-100.0); Nucleated Red Blood Cells % 0.0 %
[2025-07-02 02:55] LABS: Chloride 104 mmol/L (98-107); Potassium 4.0 mmol/L (3.5-5.1); Sodium 140 mmol/L (136-145)
[2025-07-02 02:56] LABS: Anion Gap 8 (5-15); Carbon Dioxide 28 mmol/L (20-31)
[2025-07-02 02:57] LABS: Calcium 9.5 mg/dL (8.7-10.4)
[2025-07-02 03:02] LABS: BUN/Creatinine Ratio 8.5 (10.0-20.0); Blood Urea Nitrogen 10 mg/dL (9-23); Glucose 98 mg/dL (74-106)
--- NOTE | 2025-07-02 03:24 | DVH ---
CHEST RADIOGRAPH Indication: cp Technique: Single frontal view of the chest was obtained COMPARISON: XY CHEST PORTABLE on DOS: 06/24/25 FINDINGS: Lines and Tubes: None Lungs: Clear Pleura: No effusion. No pneumothorax. Cardiomediastinal contours: Unremarkable Bones: Unremarkable IMPRESSION: 1. No acute disease.
[2025-07-02] MEDS ORDERED: MORPHINE SULFATE INJ 2 MG/ml SYRG IV PRN (09:15)
[2025-07-02] MEDS ORDERED: ACETAMINOPHEN 325 MG TAB PO PRN (09:15)
[2025-07-02] MEDS ORDERED: MORPHINE SULFATE 4 MG/ML SYR/VIAL IV PRN (09:15)
[2025-07-02] MEDS ORDERED: ONDANSETRON HCL 4 MG/2 ML VIAL IV PRN (09:15)
[2025-07-02] MEDS ORDERED: NITROGLYCERIN 0.4 MG SL TAB SL PRN ×2 (09:15)
--- NOTE | 2025-07-02 09:23 | DVHHP2 ---
History of Present Illness Reason for Visit: Chest pain with SOB History of Present Illness Charlie Silva is a 50-year-old male with no past medical history who presents to the ED with chest pain and shortness of breath that began yesterday. Patient reports that the pain is 6/10 tightness and intermittent in nature. He reports that the pain is under his left arm around his axillary. He reports that stress is a triggering factor. Patient denies any recent trauma or injury, recent sick contacts, recent travels, recent ingestion of spoiled food, fever, chills, lightheadedness, weakness, dizziness, abdominal pain, nausea, vomiting, diarrhea, or urinary symptoms. Past Surgical History: None Family History: None Smoke: <1 pack per day ALCOHOL: occassional Drugs: Marijuana Lives: Alone Domestic Violence: Neg Review of Systems Respiratory: Shortness of breath Cardiovascular: Chest Pain Allergies: Coded Allergies: NO KNOWN ALLERGIES (Unverified , 01/07/11) Exam Vital Signs Vital Signs Date Time Temp Pulse Resp B/P (MAP) Pulse Ox O2 Delivery O2 Flow Rate FiO2 07/02/25 02:08 85 07/02/25 01:57 97.4 20 132/76 97 97.4 General Appearance: Alert, Oriented X3, Cooperative, No acute distress HEENT: Atraumatic, PERRLA, EOMI, Mucous membr. moist/pink Respiratory: Normal air movement Cardiovascular: Regular rate, Normal S1, Normal S2 Abdominal: Normal bowel sounds, Soft Extremities: No clubbing, No cyanosis, No edema, Normal pulses Neuro: Normal gait, Normal speech, Strength at 5/5 X4 ext, Normal tone, Sensation intact Psych/Mental Status: Mental status NL, Mood NL Labs/Xrays Labs Test 07/02/25 05:25 07/02/25 02:21 Range/Units Troponin I High Sensitivity 3 L </=54 ng/L White Blood Count 7.2 4.4-10.8 10^3/uL Red Blood Count 4.60 4.5-5.90 10^6/uL Hemoglobin 14.2 13.5-17.5 g/dL Hematocrit 41.6 41.0-53.0 % Mean Corpuscular Volume 90.5 80.0-100.0 fL Mean Corpuscular Hemoglobin 30.8 28.0-32.0 pg Mean Corpuscular Hemoglobin Concent 34.1 32.0-36.0 g/dL Red Cell Distribution Width 14.2 11.8-14.3 % Platelet Count 321 140-450 10^3/uL Mean Platelet Volume 7.4 6.9-10.8 fL Neutrophils (%) (Auto) 45.1 37.0-80.0 % Lymphocytes (%) (Auto) 44.6 10.0-50.0 % Monocytes (%) (Auto) 8.6 0.0-12.0 % Eosinophils (%) (Auto) 1.1 0.0-7.0 % Basophils (%) (Auto) 0.6 0.0-2.0 % Neutrophils # (Auto) 3.2 1.6-8.6 10 ^3/uL Lymphocytes # (Auto) 3.2 0.4-5.4 10 ^3/uL Monocytes # (Auto) 0.6 0-1.3 10 ^3/uL Eosinophils # (Auto) 0.1 0-0.8 10 ^3/uL Basophils # (Auto) 0 0-0.2 10 ^3/uL Nucleated Red Blood Cells 0.0 % Sodium Level 140 136-145 mmol/L Potassium Level 4.0 3.5-5.1 mmol/L Chloride Level 104 98-107 mmol/L Carbon Dioxide Level 28 20-31 mmol/L Anion Gap 8 5-15 Blood Urea Nitrogen 10 9-23 mg/dL Creatinine 1.17 0.700-1.30 mg/dL Glomerular Filtration Rate Calc 76 >90 mL/min BUN/Creatinine Ratio 8.5 L 10.0-20.0 Serum Glucose 98 74-106 mg/dL Calcium Level 9.5 8.7-10.4 mg/dL CHEST RADIOGRAPH Indication: cp Technique: Single frontal view of the chest was obtained COMPARISON: XY CHEST PORTABLE on DOS: 06/24/25 FINDINGS: Lines and Tubes: None Lungs: Clear Pleura: No effusion. No pneumothorax. Cardiomediastinal contours: Unremarkable Bones: Unremarkable IMPRESSION: 1. No acute disease. SEPSIS Sepsis Screen Date sepsis recognized/suspect: Jul 02, 2025 Time Sepsis recognized/suspect: 0201 Recent Procedure: No On Antibiotic Therapy: Yes (DOXYCYCLINE ) Respiratory Rate >20: No Heart Rate >90: No Temp<36 C (96.8 F) or >38.3 C: No SBP <90 or MAP <65 mmHG: No New Acute Mental Status Change: No Is the patient on CPAP, BIPAP,: No Physician Orders Chest Portable (07/02/25 02:18) Vital Signs Date Time Temp Pulse Resp B/P (MAP) Pulse Ox O2 Delivery O2 Flow Rate FiO2 07/02/25 02:08 85 07/02/25 01:57 97.4 87 20 132/76 97 97.4 Laboratory Tests Test 07/02/25 02:21 White Blood Count 7.2 10^3/uL (4.4-10.8) Assessment/Plan Assessment/Plan Assessment Chest pain likely secondary to drug use Tobacco use Alcohol use Marijuana use Meth use Obesity Plan Admit to tele Antiemetics Pain management Aspirin + statin Echo ordered ACS workup Diet Per patient does not take any home medications DVT prophylaxis-not indicated patient ambulating PUD prophylaxis-not indicated no history of GERD or GI bleed Discussed plan of care with patient and nurse Counseled patient on cessation of tobacco, marijuana, meth, and alcohol use Counseled patient on lifestyle modifications, diet, and exercise [id number] Behavior change smoking greater than 10 minutes about use of other options also gave option of nicotine patch [id number] Preventive counseling healthy eating habits, physical activity, and regular checkups Plan discussed with: Patient Date of Service: Jul 02, 2025 Billing Provider: ERNESTO HENRIQUEZ Common Visit Codes: [id number] INP/OBS CARE (HIGH) Secondary Visit Codes: [id number] COUNSELING IND, 29131-[id number] CHNG SMOKING >10MIN ERNESTO HENRIQUEZ Jul 02, 2025 09:23
[2025-07-02] MEDS ORDERED: ATORVASTATIN 20 MG TAB PO SCH (22:00)
== END 2025-07-02 09:51 | disposition left against medical advice (07) | DRG 203 ==
LOC: ER 01:56 → OVERFLOW 09:09
DX: R07.89 Other chest pain (principal); Z59.00 Homelessness unspecified; E66.9 Obesity, unspecified; F17.210 Nicotine dependence, cigarettes, uncomplicated; Z53.29 Procedure and treatment not carried out because of patient's decision for other reasons; F10.90 Alcohol use, unspecified, uncomplicated; Y90.9 Presence of alcohol in blood, level not specified; F12.90 Cannabis use, unspecified, uncomplicated; F15.90 Other stimulant use, unspecified, uncomplicated; Z68.32 Body mass index [BMI] 32.0-32.9, adult
CPT/HCPCS: 36415; 71045; 80048; 83036; 84443; 84484; 85025; 93005; 99291; G0378